=== PATIENT | male | born 1985 | race Caucasian/White ===

== ENCOUNTER 2024-02-23 15:21 | Outpatient (CLI) | payer OTHER | END 2024-02-23 15:22 | disposition home or self-care (01) | LOC: SCSRAD 15:21 | PROVIDERS: ATTEND Family Medicine | DX: M54.42 Lumbago with sciatica, left side (principal); M48.07 Spinal stenosis, lumbosacral region | CPT/HCPCS: 72100 ==

== ENCOUNTER 2024-11-10 10:01 | Outpatient (CLI) | payer OTHER | END 2024-11-10 10:02 | disposition home or self-care (01) | LOC: SCSRAD 10:01 | DX: S49.92XA Unspecified injury of left shoulder and upper arm, initial encounter (principal); S52.122A Displaced fracture of head of left radius, initial encounter for closed fracture ==